=== PATIENT | female | born 1935 | race Caucasian/White ===

== ENCOUNTER 2025-03-12 12:00 | Inpatient (IN) | payer OTHER ==
[2025-03-12 12:20] VITALS: BMI 20.4
[2025-03-12 13:12] LABS: MCHC 32.4 g/dl (32.2-35.5); MEAN CELL VOLUME 96.4 fl (79.4-94.8); MEAN PLT VOLUME 9.4 fl (9.4-12.3); RDW 13.9 % (12.5-17.0)
[2025-03-12] MEDS ORDERED: DIPHTH,PERTUSS(ACELL),TET 0.5 ML DISP.SYRIN IM ONE (13:15)
[2025-03-12 13:18] LABS: INR 1.15 (0.83-1.09); PROTHROMBIN TIME (PATIENT) 12.6 SEC (9.7-13.0)
[2025-03-12] MEDS: DIPHTH,PERTUSS(ACELL),TET 0.5 ML DISP.SYRIN IM ONE (13:20)
[2025-03-12 13:21] LABS: ACTIVATED PTT 29.4 SECONDS (25.2-36.5)
[2025-03-12 14:27] LABS: GLUCOSE,RANDOM 86 mg/dL (74-106)
[2025-03-12 14:28] LABS: TOT PROT 7.4 g/dl (6.4-8.2)
[2025-03-12 14:29] LABS: CO2 27 mmol/L (21-32)
[2025-03-12 14:30] LABS: ALK PHOS 67 U/L (40-150)
[2025-03-12 14:33] LABS: CREATININE 0.74 mg/dL (0.55-1.3); SGOT/AST 26 U/L (5-34); SGPT/ALT 20 U/L (0-55)
[2025-03-12] MEDS ORDERED: ACETAMINOPHEN 325 MG TABLET (FP) ONE (15:51)
[2025-03-12] MEDS: ACETAMINOPHEN 325 MG TABLET (FP) PO ONE (16:01)
[2025-03-12] MEDS ORDERED: CEFTRIAXONE 1 GM/50 ML BAG ONE (16:52)
[2025-03-12] MEDS ORDERED: AZITHROMYCIN IVPB 500 MG/250 ML BAG IVPB ONE (16:52)
[2025-03-12] MEDS: CEFTRIAXONE 1 GM in DEXTROSE 5%-WATER - 100 ML IVPB ONE (16:55)
[2025-03-12] MEDS: AZITHROMYCIN IVPB 500 MG in DEXTROSE 5%-WATER - 250 ML IVPB ONE (17:09)
[2025-03-12] MEDS ORDERED: LIDOCAINE 5% TOPICAL PATCH TP ONE (18:25)
[2025-03-12] MEDS: PANTOPRAZOLE 40 MG TABLET PO SCH (20:08)
[2025-03-12] MEDS: APIXABAN 2.5 MG TABLET PO SCH (21:07)
[2025-03-12] MEDS: ACETAMINOPHEN 325 MG TABLET (FP) PO PRN (21:07)
[2025-03-12] MEDS: LURASIDONE HCL 20 MG TABLET PO SCH (21:08)
[2025-03-12] MEDS: LIDOCAINE 5% TOPICAL PATCH TP ONE (22:42)
[2025-03-13] MEDS: SERTRALINE HCL 50 MG TABLET (FP) PO SCH (09:58)
[2025-03-13] MEDS: LIDOCAINE PATCH REMOVAL MC SCH (10:30)
[2025-03-15 16:06] VITALS: RESP 18
[2025-03-16 06:52] VITALS: BP 117/66; PULSE 84; TEMP 98.2
== END 2025-03-16 14:45 | DRG 206 ==
LOC: JER 12:00 → JERBED 16:53 → OBSVTOIN 18:22 → J6S 18:42
PROVIDERS: ADMIT Internal Medicine; ATTEND Internal Medicine
DX: S22.32XA Fracture of one rib, left side, initial encounter for closed fracture (principal); M81.0 Age-related osteoporosis without current pathological fracture; R55 Syncope and collapse; E83.52 Hypercalcemia; W01.0XXA Fall on same level from slipping, tripping and stumbling without subsequent striking against object, initial encounter; Y93.89 Activity, other specified; Y92.89 Other specified places as the place of occurrence of the external cause; Y99.8 Other external cause status
CPT/HCPCS: 36415; 70450-TC; 71045-TC-FY; 71250-TC; 72125-TC; 72170-TC-FY; 80053; 82550; 83735; 84484; 85027; 85610; 85730; 87633; 87899; 90715; 93005; 93010; 97116-GP; 97162-GP; 99285-25; G0378